=== PATIENT | female | born 1985 | race Hispanic/Latino ===

== ENCOUNTER 2018-06-24 18:56 | Emergency (ER) | payer MEDICAID ==
[2018-06-24] MEDS ORDERED: ONDANSETRON HCL 4 MG/2 ML VIAL ONE ×2 (19:36→21:55)
[2018-06-24] MEDS ORDERED: MORPHINE SULFATE 4 MG/1ML SYG ONE (19:36)
[2018-06-24 19:58] LABS: BASOPHILS % (AUTO) 0.5 % (0.0-5.0); HEMATOCRIT 42.6 % (36-48); LYMPHOCYTES % (AUTO) 16.1 % (21.0-51.0); MEAN CORPUSCULAR HEMOGLOBIN 29.8 pg (27.0-33.0); MEAN CORPUSCULAR VOLUME 90.5 fL (79-99); MONOCYTES % (AUTO) 4.2 % (3.0-13.0); NEUTROPHILS % (AUTO) 78.2 % (40.0-77.0); PLATELET COUNT (AUTO) 285 K/uL (130-400); RED BLOOD CELL COUNT(AUTO) 4.71 MIL/uL (4.00-5.50); RED CELL DISTRIBUTION WIDTH 13.1 % (11.0-15.5); WHITE BLOOD COUNT (AUTO) 12.9 K/uL (4.8-10.8)
[2018-06-24 20:26] LABS: POTASSIUM 3.8 mmol/L (3.5-5.1)
[2018-06-24 20:31] LABS: ALBUMIN 3.7 g/dL (3.5-5.0); BILIRUBIN,TOTAL 0.5 mg/dL (0.2-1.0); TOTAL PROTEIN, SERUM 7.7 g/dL (6.0-8.3)
== END 2018-06-24 22:52 | disposition home or self-care (01) ==
LOC: EDH 18:56
DX: R10.13 Epigastric pain (principal); R11.2 Nausea with vomiting, unspecified; R07.9 Chest pain, unspecified; Z90.49 Acquired absence of other specified parts of digestive tract
CPT/HCPCS: 36415; 71045; 74176; 80053; 83690; 84484; 85025; 93005; 96361; 96374; 96375; 96376; 99285; J2270; J2405 ×2

== ENCOUNTER 2024-02-15 13:52 | Emergency (ER) | payer BC, MEDICAID ==
[~2024-02-15] VITALS: Ht 160 cm; Wt 136.1 kg
[2024-02-15 14:32] VITALS: BP 148/83; TEMP 103
[2024-02-15 15:03] LABS: COVID19 (SARS ANTIGEN RAPID) PRESUMPTIVE NEGATIVE (NEGATIVE); INFLUENZA TYPE B Negative For Type B (NEGATIVE)
[2024-02-15 15:06] LABS: INFLUENZA TYPE A Positive For Type A (NEGATIVE)
[2024-02-15] MEDS ORDERED: OSEL75 PO (15:51)
--- NOTE | 2024-02-15 15:51 | ERN ---
General Chief Complaint: Flu Symptoms Stated Complaint: CP,FEVER, SOB Time Seen by MD: 15:01 History of Present Illness Initial Comments 38-year-old female came in for flu-like symptoms with cough runny nose subjective fevers. Patient otherwise has no concerns. Past Medical History Past Medical History: Asthma Past Surgical History: Appendectomy, Cholecystectomy ROS Dictation CONSTITUTIONAL: Negative except for HPI HEAD/FACE: Negative except for HPI EENT: Negative except for HPI RESPIRATORY: Negative except for HPI GASTROINTESTINAL/ABDOMINAL: Negative except for HPI GENITOURINARY: Negative except for HPI MUSCULOSKELETAL: Negative except for HPI INTEGUMENTARY: Negative except for HPI NEUROLOGICAL/PSYCH: Negative except for HPI HEMATOLOGIC/LYMPHATIC: Negative except for HPI All Systems Negative, Except as noted above. 13 point review of systems assessed and all negative except for above. Physical Exam Physical Exam Dictation Vital Signs reviewed General Appearance: Alert, oriented x 3, no acute distress, well developed, nourished. Head and Face: non-traumatic. Eyes: PERRL, pink conjunctivas, eyelid no trauma, anterior chamber with arcus senilis. Ears: Pinnas intact and no signs of trauma or erythema ear canals clear and no discharge TM no erythema Nose: No discharge, no bleeding. Oropharynx: Mouth normal, tongue pink, pharynx clear,no erythema, tonsils no exudates, no abscesses noted, mucous membrane moist Neck: Supple, non-tender, no thyromegaly, no masses, no JVD, no bruits Breast:Deferred Chest:No tenderness, no crepitus, no paradoxical movement, no retractions Lungs:Clear, well-ventilated, symmetric, no rales, no wheezing, no rhonchi, no stridor, good breath sounds bilaterally Heart: Regular rate, regular rhythm, no murmur, no gallops Vascular: no peripheral edema, Abdomen: Soft, positive bowel sounds, nondistended, no guarding, nontender, no rebound, no masses no hepatomegaly, no splenomegaly, no Emerson's sign, no hernias. Rectal: Deferred Genital: Deferred Neurological: Normal speech, motor function intact, sensory function intact Musculoskeletal: Neck nontender, full range of motion, back nontender, full range of motion, Extremities: nontender, full range of motion Skin: Color pink, dry, no turgor, no rash, no lacerations, no abrasions, no contusions. Lymphatic: Deferred Results Laboratory and Microbiology Lab and Micro Result Laboratory Tests Test 02/15/24 14:29 Influenza Type A Antigen Positive For Type A Influenza Type B Antigen Negative For Type B SARS-CoV-2 Antigen (Rapid) PRESUMPTIVE NEGATIVE MDM MDM: Differential diagnosis: There are no social concerns with this patient. Prescription drug management Prescriptions will include: Medical management and examination interpretation discussions were had by me with other qualified healthcare professionals as indicated for the patient's care. ED Course Orders Procedure Category Date Status Time Covid19 (Sars Antigen LAB 02/15/24 Complete Rapid) 14:27 Influenza Type A & B, LAB 02/15/24 Complete Rapid 14:27 Chest 1vw RAD 02/15/24 Taken 14:27 Vital Signs Date Time Temp Pulse Resp B/P (MAP) Pulse Ox O2 Delivery O2 Flow Rate FiO2 02/15/24 14:32 102.9 124 20 148/83 97 Room Air 0 DX & DISP Disposition: Discharge Departure Impression: Primary Impression: Viral syndrome Additional Impression: Influenza Condition: Stable Scripts Oseltamivir Phosphate (Tamiflu) 75 Mg Cap 75 MG PO BID for 5 Days, #5 CAP Prov: ELIZABETH BARNETT MD 02/15/24 Referrals: SEBASTIEN GARCIA (PCP) ELIZABETH BARNETT MD Feb 15, 2024 15:51
--- NOTE | 2024-02-15 16:35 | HMCIMG ---
Exam Type: CHEST 1VW Clinical Information: COUGH, SOB Comparison: None Findings: The lungs are clear of infiltrates. The heart is normal in size. The bony and soft tissue structures of the chest are unremarkable. Impression: Clear lungs.
[2024-02-15] MEDS ORDERED: METH8TAB PO (16:59)
[2024-02-15] MEDS ORDERED: ALBUHFA IH (16:59)
[2024-02-15] MEDS: Solu-medROL 125MG VIAL IVP ONE (17:04)
[2024-02-15] MEDS ORDERED: AUD IH (17:05)
[2024-02-15] MEDS: IpraTROPium/alBUTERol SULFATE 3 ML SOLUTION IH ONE (17:08)
[2024-02-15 17:09] VITALS: PULSE 125; RESP 22
[2024-02-15 17:28] VITALS: PULSE 79; RESP 16; O2SAT 100
== END 2024-02-15 17:33 | disposition home or self-care (01) ==
LOC: EDH 13:52
DX: J10.1 Influenza due to other identified influenza virus with other respiratory manifestations (principal); J45.909 Unspecified asthma, uncomplicated; Z20.822 Contact with and (suspected) exposure to COVID-19; Z90.49 Acquired absence of other specified parts of digestive tract
CPT/HCPCS: 99284; 96374; 71045; 87426; 87804 ×2; 94640; J2919

== ENCOUNTER 2024-09-11 15:37 | Emergency (ER) | payer SELFPAY ==
[~2024-09-11] VITALS: Ht 160 cm; Wt 136.1 kg
[~2024-09-11 15:37] MED LIST: ALBUHFA IH; AUD IH; METH8TAB PO; OSEL75 PO
--- NOTE | 2024-09-11 16:02 | ERN ---
ED Note History of Present Illness Stated Complaint: CHEST PAIN, DIZZINESS Chief Complaint: Chest Pain Time Seen by MD: 15:39 Dictation: PATIENT IS A 38-YEAR-OLD FEMALE COMING IN TODAY WITH MULTIPLE COMPLAINTS INCLUDE DIZZINESS, GENERALIZED HEADACHE AND ANTERIOR CHEST PAIN SHE HAS HAD SINCE LAST SUNDAY. SHE SAID IT STARTED OUT WITH DIZZINESS WHILE SHE WAS SWIMMING AND THOUGHT SHE HAD WATER IN HER EAR. SHE STATES THEN THE CHEST PAIN STARTED SUNDAY DID NOT RADIATE. SAW HER PRIMARY CARE DOCTOR TODAY WHO PERFORMED AN EKG AND TOLD HER SHE WAS IN SINUS TACHYCARDIA AND RE REFERRED HER TO A STOVE MECHANIC'S IN THE NEXT SEVERAL DAYS. HIM HERE TODAY BECAUSE SHE DOES NOT WANT TO WAIT FOR THE FOLLOW UP. NIH IS 0. Allergies: Coded Allergies: No Known Allergies (Unverified Allergy, Unknown, 09/11/24) Home Meds Active Scripts Albuterol Sulfate (Albuterol Sulfate) 2.5 Mg/0.5 Ml Vial.neb, 2.5 MG IH BID for wheezing/sob for 5 Days, #10 INH 0 Refills Prov:ELIZABETH BARNETT MD 02/15/24 Methylprednisolone (Medrol) 8 Mg Tablet, 1 TAB PO BID for 5 Days, #10 TAB 0 Refills Prov:ELIZABETH BARNETT MD 02/15/24 Albuterol Sulfate (Ventolin Hfa/Proventil Hfa/Proair Hfa) 90 Mcg Puff, 2 PUFF IH BID for WHEEZING for 5 Days, #1 INHALER 0 Refills Prov:ELIZABETH BARNETT MD 02/15/24 Oseltamivir Phosphate (Tamiflu) 75 Mg Cap, 75 MG PO BID for 5 Days, #5 CAP Prov:ELIZABETH BARNETT MD 02/15/24 Past Medical History Past Medical History: Anxiety, Asthma, Diabetes-Type II Surgical History: Appendectomy, Cholecystectomy History: Not Applicable LMP: May 13, 2024 RN Note Reviewed/Agreed w/PFSH: Yes Review of System Dictation CONSTITUTIONAL: NEGATIVE EXCEPT FOR HPI HEAD/FACE: NEGATIVE EXCEPT FOR HPI EENT: NEGATIVE EXCEPT FOR HPI RESPIRATORY: NEGATIVE EXCEPT FOR HPI CHEST PAIN GASTROINTESTINAL/ABDOMINAL: NEGATIVE EXCEPT FOR HPI GENITOURINARY: NEGATIVE EXCEPT FOR HPI MUSCULOSKELETAL: NEGATIVE EXCEPT FOR HPI INTEGUMENTARY: NEGATIVE EXCEPT FOR HPI NEUROLOGICAL/PSYCH: NEGATIVE EXCEPT FOR HPI DIZZINESS HEMATOLOGIC/LYMPHATIC: NEGATIVE EXCEPT FOR HPI ALL SYSTEMS NEGATIVE, EXCEPT NOTED ABOVE. 13 POINT REVIEW OF SYSTEMS ASSESSED AND ALL NEGATIVE EXCEPT FOR ABOVE. Initial Vital Sign VS Vital Signs Date Time Temp Pulse Resp B/P (MAP) Pulse Ox O2 Delivery O2 Flow Rate FiO2 09/11/24 15:48 99.0 99 16 134/79 98 Room Air 0 09/11/24 19:29 21 Physical Exam Dictation VITAL SIGNS REVIEWED GENERAL APPEARANCE: ALERT, ORIENTED X 3, MODERATE ACUTE DISTRESS, WELL DEVELOPED, NOURISHED. MORBIDLY OBESE HEAD AND FACE: NON-TRAUMATIC. EYES: PERRL, PINK CONJUNCTIVAS, EYELID NO TRAUMA, ANTERIOR CHAMBER WITH ARCUS SENILIS. EARS: PINNAS INTACT AND NO SIGNS OF TRAUMA OR ERYTHEMA EAR CANALS CLEAR AND NO DISCHARGE TM NO ERYTHEMA NOSE: NO DISCHARGE, NO BLEEDING. OROPHARYNX: MOUTH NORMAL, TONGUE PINK, PHARYNX CLEAR,NO ERYTHEMA, TONSILS NO EXUDATES, NO ABSCESSES NOTED, MUCOUS MEMBRANE MOIST NECK: SUPPLE, NON-TENDER, NO THYROMEGALY, NO MASSES, NO JVD, NO BRUITS BREAST:DEFERRED CHEST: LEFT LATERAL ANTERIOR CHEST PAIN TENDERNESS TENDERNESS, NO CREPITUS, NO PARADOXICAL MOVEMENT, NO RETRACTIONS REPRODUCES PAIN LUNGS:CLEAR, WELL-VENTILATED, SYMMETRIC, NO RALES, NO WHEEZING, NO RHONCHI, NO STRIDOR, GOOD BREATH SOUNDS BILATERALLY HEART: REGULAR RATE, REGULAR RHYTHM, NO MURMUR, NO GALLOPS VASCULAR: NO PERIPHERAL EDEMA, ABDOMEN: SOFT, POSITIVE BOWEL SOUNDS, NONDISTENDED, NO GUARDING, NONTENDER, NO REBOUND, NO MASSES NO HEPATOMEGALY, NO SPLENOMEGALY, NO JORDAN'S SIGN, NO HERNIAS. RECTAL: DEFERRED GENITAL: DEFERRED NEUROLOGICAL: NORMAL SPEECH, MOTOR FUNCTION INTACT, SENSORY FUNCTION INTACT MUSCULOSKELETAL: NECK NONTENDER, FULL RANGE OF MOTION, BACK NONTENDER, FULL RANGE OF MOTION, EXTREMITIES: NONTENDER, FULL RANGE OF MOTION SKIN: COLOR PINK, DRY, NO TURGOR, NO RASH, NO LACERATIONS, NO ABRASIONS, NO CONTUSIONS. LYMPHATIC: DEFERRED Results (Laboratory/Radiology) Laboratory/Radiology Laboratory Tests Test 09/11/24 16:20 09/11/24 16:23 09/11/24 19:00 White Blood Count 17.1 K/uL (4.8-10.8) H Red Blood Count 4.75 MIL/uL (4.00-5.50) Hemoglobin 14.7 g/dL (12.0-16.0) Hematocrit 44.0 % (36-48) Mean Corpuscular Volume 92.6 fL (79-99) Mean Corpuscular Hemoglobin 30.9 pg (27.0-33.0) Mean Corpuscular Hemoglobin Concent 33.4 g/dL (32.0-36.0) Red Cell Distribution Width 13.3 % (11.0-15.5) Platelet Count 389 K/uL (130-400) Mean Platelet Volume 10.2 fL (7.5-10.5) Immature Granulocyte % (Auto) 0.8 % (0-1) Neutrophils (%) (Auto) 79.9 % (40.0-77.0) H Lymphocytes (%) (Auto) 14.4 % (21.0-51.0) L Monocytes (%) (Auto) 3.4 % (3.0-13.0) Eosinophils (%) (Auto) 1.1 % (0.0-8.0) Basophils (%) (Auto) 0.4 % (0.0-5.0) Neutrophils # (Auto) 13.7 K/uL (1.8-7.7) H Lymphocytes # (Auto) 2.5 K/uL (1.0-4.8) Monocytes # (Auto) 0.6 K/uL (0.1-1.0) Eosinophils # (Auto) 0.18 K/uL (0.00-0.70) Basophils # (Auto) 0.07 K/uL (0.00-0.20) Absolute Immature Granulocyte (auto 0.13 K/uL (0-1) Nucleated Red Blood Cells 0.0 % (0.0-0.19) Sodium Level 142 mmol/L (136-145) Potassium Level 4.0 mmol/L (3.5-5.1) Chloride Level 102 mmol/L (101-111) Carbon Dioxide Level 32 mmol/L (21-32) Blood Urea Nitrogen 16 mg/dL (7-18) Creatinine 0.7 mg/dL (0.5-1.0) Glomerular Filtration Rate Calc 114 mL/min (>90) Random Glucose 149 mg/dL (70-105) H Total Calcium 9.7 mg/dL (8.5-10.1) Troponin I High Sensitivity 4 ng/L (4-50) Urine Color LIGHT-YELLOW (YELLOW) Urine Appearance CLEAR (CLEAR) Urine pH 7.5 (5.0-8.0) Urine Specific [place] 1.018 (1.001-1.031) Urine Protein NEGATIVE mg/dL (NEGATIVE) Urine Glucose (UA) NEGATIVE mg/dL (NEGATIVE) Urine Ketones NEGATIVE mg/dL (NEGATIVE) Urine Occult Blood NEGATIVE (NEGATIVE) Urine Nitrate NEGATIVE (NEGATIVE) Urine Bilirubin NEGATIVE mg/dL (NEGATIVE) Urine Urobilinogen 0.2 mg/dL (0.2-1.0) Urine Leukocyte Esterase 75 Sandip/uL (NEGATIVE) H Urine RBC None /HPF (0-1) Urine WBC 2-5 /HPF (0-1) H Urine Squamous Epithelial Cells MOD /HPF (0-2) Urine Bacteria None /HPF (None Seen) Urine HCG, Qualitative NEGATIVE (NEGATIVE) Lactic Acid Level 1.6 mmol/L (0.8-2.5) CHEST X-RAY NEGATIVE COMPARISON: None provided. FINDINGS: No acute intracranial abnormality is present. No acute cortical infarction, hemorrhage, mass or mass effect. No hydrocephalus or abnormal extra-axial fluid collections. The posterior fossa is unremarkable. The skull base and calvarium are intact. The included portions of the paranasal sinuses and mastoid air cells are clear. Mildly deviated nasal septum towards the right. IMPRESSION: No acute intracranial abnormality is present. /[place] Labs Reviewed?: Yes EKG: (+) NSR EKG Comment: SINUS TACHYCARDIA/HEART RATE 103/AXIS NORMAL/NO ECTOPY ED Course ED Course Orders Procedure Category Date Status Time Cbc With Differential LAB 09/11/24 Complete 16:00 Troponin I High LAB 09/11/24 Complete Sensitivity 16:00 ,Urine Test LAB 09/11/24 Complete 16:00 Urinalysis Profile LAB 09/11/24 Complete 16:00 12 Lead Ekg Tracing- EKG 09/11/24 Logged Technical 16:00 0.9%Nacl 1000ml (Ns PHA 09/11/24 Complete 1000ml) 16:00 Basic Metabolic Panel LAB 09/11/24 Complete 16:00 Culture Urine LORENE 09/11/24 In Process 16:34 Chest 1vw RAD 09/11/24 Resulted 17:42 Blood Cult LORENE 09/11/24 In Process 17:42 Lactic Acid LAB 09/11/24 Complete 17:42 0.9%Nacl 1000ml (Ns PHA 09/11/24 Complete 1000ml) 19:30 Methylprednisolone PHA 09/11/24 Complete Succ 125mg (Solu-Medr 19:30 Ketorolac PHA 09/11/24 Complete Tromethamine 30mg/Ml 19:30 Meclizine Hcl 25 Mg PHA 09/11/24 Complete (Antivert 25 Mg) 19:30 Ondansetron 4mg Inj PHA 09/11/24 Complete (Zofran 4mg Inj) 19:30 Ct Head/Brain W/O CT 09/11/24 Resulted Contrast 19:56 Hydrocodone/Apap PHA 09/11/24 Complete 5/325 ([place] 5/325mg) 22:00 Current Medications Medications (Trade) Dose Ordered Sig/[place] Route PRN Reason Start Time Stop Time Status Last Admin Dose Admin Acetaminophen/ Hydrocodone Bitart (NORco 5/325MG) 1 tab ONCE ONCE PO 09/11/24 22:00 09/11/24 22:01 DC 09/11/24 21:48 Ketorolac Tromethamine (toRADol) 30 mg ONCE ONCE IVP 09/11/24 19:30 09/11/24 19:31 DC 09/11/24 19:31 Meclizine HCl (ANTIvert 25 mg) 50 mg ONCE ONCE PO 09/11/24 19:30 09/11/24 19:31 DC 09/11/24 19:30 Methylprednisolone Sodium Succinate (Solu-medROL 125MG) 125 mg ONCE ONCE IVP 09/11/24 19:30 09/11/24 19:31 DC 09/11/24 19:30 Ondansetron HCl (zoFRAN 4MG INJ) 4 mg ONCE ONCE IVP 09/11/24 19:30 09/11/24 19:31 DC 09/11/24 19:30 Sodium Chloride 1,000 ml @ 0 mls/hr ONCE ONCE IV 09/11/24 16:00 09/11/24 16:10 DC 09/11/24 18:09 Sodium Chloride 1,000 ml @ 0 mls/hr ONCE ONCE IV 09/11/24 19:30 09/11/24 19:31 DC 09/11/24 19:31 Vital Signs Date Time Temp Pulse Resp B/P (MAP) Pulse Ox O2 Delivery O2 Flow Rate FiO2 09/11/24 19:29 98.8 92 18 127/74 98 Room Air* 0 21 09/11/24 15:48 99.0 99 16 134/79 98 Room Air 0 1954/PATIENT STATES DIZZINESS AND VERTIGO REMAINS UNCHANGED WITH FLUIDS MECLIZINE AND STEROIDS. WE WILL FOLLOW UP WITH CT OF THE HEAD TO RULE OUT NEUROLOGIC LESION 2149/SPOKE WITH SUKUMAR AT [facility] REGARDING CT OF THE HEAD REPORT. HE SAID HE WOULD HAVE IT EXPEDITE IT.2209/PATIENT WILL BE DISCHARGED HOME NEUROLOGICALLY INTACT STATES PAIN IS MARKEDLY IMPROVED. SHE WILL BE TREATED FOR BENIGN POSITIONAL VERTIGO/TENSION HEADACHE/COSTOCHONDRITIS. SHE WILL BE REFERRED BACK TO HER PRIMARY CARE DOCTOR FOR MANAGEMENT. HEART Score Response (Comments) Value History: Low suspicion (0) 0 EKG: Normal 0 Age: < 45yrs (0) 0 Risk Factors: 1-2 risk factors (+1) 1 Initial Troponin: Normal limit (0) 0 Total 1 Medical Decision Making MDM MDM: DIFFERENTIAL DIAGNOSIS: SEPSIS/ACS/AMI/ELECTROLYTE IMBALANCE/DEHYDRATION/PNEUMONIA/BRONCHITIS/CVA/BENIGN POSITIONAL HYPERTROPHY/LABYRINTHITIS/UTI/COSTOCHONDRITIS RATIONALE: TESTS CONSIDERED AND ORDERED SECONDARY TO SHARED DECISION MAKING INCLUDE: EKG/LABS/RADIOLOGY PREVIOUS OUTSIDE RECORDS REVIEWED: OLD ER VISITS. RISK OF COMPLICATION AND/OR MORBIDITY OR MORTALITY OF PATIENT MANAGEMENT: NONE MEDICATIONS-PER MEDICATION RECONCILIATION NEED FOR HOSPITALIZATION: PATIENT DOES NOT MEET CRITERIA FOR HOSPITALIZATION. NO NEED FOR EMERGENCY MAJOR/MINOR SURGERY: NO THERE ARE NO SOCIAL CONCERNS WITH THIS PATIENT. PRESCRIPTION DRUG MANAGEMENT IBUPROFEN/MECLIZINE/FIORICET PRESCRIPTIONS WILL INCLUDE SYMPTOMATIC CARE PATIENT'S PRIOR EXTERNAL MEDICAL RECORDS FROM OTHER ER VISITS WERE REVIEWED BY ME INDICATED. PRIOR TESTING AND RESULTS FROM PREVIOUS VISITS WERE REVIEWED. PRIOR TESTS WERE TAKEN INTO ACCOUNT WITH MEDICAL DECISION MAKING AND RESOURCE UTILIZATION, INDEPENDENT HISTORIAN/HISTORIANS WERE USED TO OBTAIN COMPLETE MEDICAL HISTORY. I INDEPENDENTLY INTERPRETED THE TEST THAT WERE PERFORMED, RESULTS WERE REVIEWED BY ME AND CONSIDERED FINDINGS ON RADIOLOGY IF ORDERED. MEDICAL MANAGEMENT AND EXAMINATION INTERPRETATION DISCUSSIONS WERE HAD BY ME WITH OTHER QUALIFIED HEALTHCARE PROFESSIONALS INDICATED FOR THE PATIENT'S CARE. DX & DISP Disposition: Discharge Departure Impression: Primary Impression: Uncontrolled diabetes mellitus Additional Impressions: Benign positional vertigo, Leukocytosis, Costochondritis, acute, Acute costochondritis, Obesity Condition: Stable Scripts Butalb/Acetaminophen/Caffeine (Fioricet) 50 Mg-325 Mg-40 Mg Tab 2 TAB PO Q4HPRN PRN for TENSION HEADACHE, #16 TAB 0 Refills Prov: JERI PALOMINO NP 09/11/24 Meclizine HCl (Meclizine HCl) 25 Mg Tablet 25 MG PO TID for vertigo, #30 TAB 0 Refills Prov: JERI PALOMINO NP 09/11/24 Ibuprofen (Ibuprofen 800 mg Tab) 800 Mg Tab 800 MG PO Q8H PRN for fever or pain, #30 TAB 0 Refills Prov: JERI PALOMINO NP 09/11/24 Additional Instructions: Follow-up with primary care provider in 1 to 2 days. Take medications as directed here in the emergency room. Okay to continue home medications unless otherwise discussed during your visit in the emergency room today. Return to your nearest emergency room if symptoms worsen or if there is no improvement. Call 911 if you need immediate assistance. Take Tylenol or Motrin over-the- counter as needed and if no contraindications are present. Increase oral hydration. A wound culture or urine culture was ordered here in the emergency room department please follow-up with primary care provider and advise them to get repeat ports from our facility. If you had any Jack wrap/splints that were applied here, please do not remove them until you see your primary care or specialty. Take meclizine every 8 hours with food for the next three days. Increase your water intake. Follow up with your primary care doctor in 1-2 days for management. Referrals: SEBASTIEN GARCIA (PCP) Time of Disposition: 22:15 I have reviewed the case, and I agree with, Diagnosis and Plan JERI PALOMINO NP Sep 11, 2024 16:02
[2024-09-11 16:27] LABS: IMMATURE GRANULOCYTE ABSOLUTE 0.13 K/uL (0-1); NUCLEATED RED BLOOD CELLS 0.0 % (0.0-0.19); PLATELET COUNT (AUTO) 389 K/uL (130-400); RED BLOOD CELL COUNT(AUTO) 4.75 MIL/uL (4.00-5.50); RED CELL DISTRIBUTION WIDTH 13.3 % (11.0-15.5); WHITE BLOOD COUNT (AUTO) 17.1 K/uL (4.8-10.8)
[2024-09-11 16:31] LABS: APPEARANCE,URINE CLEAR (CLEAR); GLUCOSE, URINE (UA) NEGATIVE (NEGATIVE); LEUKOCYTE ESTERASE ,URINE 75 Leu/uL (NEGATIVE); NITRATE,URINE NEGATIVE (NEGATIVE); OCCULT BLOOD,URINE NEGATIVE (NEGATIVE)
[2024-09-11 16:33] LABS: ADD UA MICROSCOPIC YES; HCG,QUALITATIVE URINE NEGATIVE (NEGATIVE)
[2024-09-11 16:36] LABS: SQUAMOUS EPITHELIAL CELL,UR MOD /HPF (0-2)
[2024-09-11 16:36] LABS: CREATININE 0.7 mg/dL (0.5-1.0); GLOMERULAR FILTR. RATE CALC 114.0 mL/min (>90); GLUCOSE,RANDOM 149.0 mg/dL (70-105); SODIUM SERUM 142.0 mmol/L (136-145); UREA NITROGEN, BLOOD 16.0 mg/dL (7-18)
[2024-09-11] MEDS: 0.9%NACL 1000ML 1,000 ML IV ONE ×2 (18:09→19:31)
--- NOTE | 2024-09-11 18:47 | HMCIMG ---
EXAM: CR Chest, 1 View. CLINICAL HISTORY: SOB/COUGH COMPARISON: 02/15/2024 FINDINGS: LUNGS: The lungs show no infiltrate or other acute finding. PLEURAL SPACES: No pleural effusion or pneumothorax. MEDIASTINUM: Cardiac size and mediastinal contours within normal limits. BONES: No acute osseous abnormality. IMPRESSION: No acute cardiopulmonary pathology is evident. /[place]
[2024-09-11] MEDS: HYDROcodone/APAP 5/325 1 TAB TABLET PO ONE (21:48)
--- NOTE | 2024-09-11 22:09 | HMCIMG ---
EXAM: Non-contrast CT examination of the Brain CLINICAL HISTORY: Occipital headache with dizziness and vertigo, onset 7 days ago. TECHNIQUE: Thin collimated axial CT images of the brain were obtained with sagittal and coronal reformatted images also submitted. CT scan is done according to ALARA (As Low as Reasonably Achievable). CONTRAST USED: None. COMPARISON: None provided. FINDINGS: No acute intracranial abnormality is present. No acute cortical infarction, hemorrhage, mass or mass effect. No hydrocephalus or abnormal extra-axial fluid collections. The posterior fossa is unremarkable. The skull base and calvarium are intact. The included portions of the paranasal sinuses and mastoid air cells are clear. Mildly deviated nasal septum towards the right. IMPRESSION: No acute intracranial abnormality is present. /[place]
[2024-09-11] MEDS ORDERED: FIORIT PO (22:16)
[2024-09-11] MEDS ORDERED: MECL-302 PO (22:16)
[2024-09-11] MEDS ORDERED: IBUP-2077 PO (22:16)
[2024-09-11 22:26] VITALS: BP 124/71; PULSE 90; RESP 18; TEMP 98.6; O2SAT 99
--- NOTE | 2024-09-12 07:39 | EKG ---
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
== END 2024-09-11 22:31 | disposition home or self-care (01) ==
LOC: EDH 15:37
DX: E11.65 Type 2 diabetes mellitus with hyperglycemia (principal); H81.10 Benign paroxysmal vertigo, unspecified ear; M94.0 Chondrocostal junction syndrome [Tietze]; D72.829 Elevated white blood cell count, unspecified; E66.9 Obesity, unspecified; J45.909 Unspecified asthma, uncomplicated; Z79.52 Long term (current) use of systemic steroids; Z90.49 Acquired absence of other specified parts of digestive tract; Z68.43 Body mass index [BMI] 50.0-59.9, adult; Z79.899 Other long term (current) drug therapy
CPT/HCPCS: 99285; 96374; 70450; 96375; 71045; 96361; 84484; 80048; 85025; 87040 ×2; 87086; 83605; 81001; 81025; 36415; 93005; J1885; J2919; J7030 ×2; J2405